=== PATIENT | female | born 1975 | race Caucasian/White ===

== ENCOUNTER 2022-01-13 14:46 | Emergency (ER) | payer OTHER, SELFPAY ==
[2022-01-13 16:08] VITALS: BP 132/73; PULSE 77; RESP 18; TEMP 36.1; O2SAT 98; BMI 30.9
[2022-01-13] MEDS: Lidocaine HCl 1 % 20 ML VIAL 10 ML INFILTRATI (18:16)
[2022-01-13] MEDS: Diphth,Pertus(ACell),Tet Adult 0.5 ML SYRINGE IM (18:46)
--- NOTE | 2022-01-13 18:56 | ED.WOUNDLAC ---
HPI - Wound/Laceration General Chief Complaint: Wound/Laceration Stated Complaint: R foot lac Time Seen by Provider: 01/13/22 17:43 Source: patient Mode of arrival: ambulatory Limitations: no limitations History of Present Illness HPI narrative: At 1 yet 46-year-old female who was playing with her own dog, and went to kick the ball walk her dog went to bite the ball and her dog bit the top of her right ankle. Her dog is up-to-date on all of its rabies shots and vaccinations. She is not up-to-date on her tetanus. Related Data Home Medications Medication Instructions Recorded Confirmed fluticasone propionate 50 1 spray INTRANASAL DAILY 01/25/21 mcg/actuation nasal spray,suspension ibuprofen PO .twice daily 01/25/21 Previous Rx's Medication Instructions Recorded carbamide peroxide 6.5 % ear drops 5 drp OTIC (EAR) LEFT Q12H 4 Days 01/25/21 (Debrox) #18 ml meclizine 25 mg tablet 25 mg PO BID PRN #30 tab 01/25/21 amoxicillin 875 mg-potassium 1 tab PO BID 10 Days #20 tab 01/13/22 clavulanate 125 mg tablet Allergies Allergy/AdvReac Type Severity Reaction Status Date / Time No Known Allergies Allergy Verified 01/25/21 08:15 Review of Systems Constitutional: Constitutional: Denies body ache(s), Denies chills, Denies fatigue, Denies fever(s), Denies headache(s), Denies malaise and Denies weakness Eyes: Eyes: Denies diplopia ENT: Denies vertigo, Denies dizziness, Denies headache(s) and Denies throat swelling Cardiovascular: Cardiovascular: Denies chest pain, Denies syncope, Denies leg edema, Denies lightheadedness, Denies Loss of Consciousness, Denies palpitations and Denies dyspnea Respiratory: Respiratory: Denies chest congestion, Denies cough and Denies dyspnea Gastrointestinal: Gastrointestinal: Denies abdominal pain, Denies hematochezia, Denies constipation, Denies diarrhea and Denies vomiting Musculoskeletal: Musculoskeletal: Reports no additional musculoskeletal complaints, Denies muscle weakness, Denies numbness and Denies tingling Integumentary/Breasts: Comments: Laceration to dorsum of right ankle Neurologic: Denies confusion, Denies vertigo, Denies dizziness, Denies syncope, Denies headache(s), Denies numbness, Denies tingling and Denies weakness Psychiatric: Psychiatric: Denies anxiety, Denies confusion and Denies depression Endocrine: Endocrine: Denies fatigue and Denies palpitations Allergic/Immunologic: Allergic/Immunologic: Denies throat swelling PMFSH Past Medical History Medical History (Updated 01/13/22 @ 18:05 by TAMI Prescott) No known health problems Social History Social History Advance Directives: No Advance Directives Information Provided: No Physical Exam Vital Signs: Vital Signs: Last Vital Signs Temp 97.0 F 01/13/22 16:08 Pulse 77 01/13/22 16:08 Resp 18 01/13/22 16:08 BP 132/73 01/13/22 16:08 Pulse Ox 98 01/13/22 16:08 BMI result Body Mass Index 30.9 Const: General: No confusion Nutritional Appearance: well nourished Orientation/consciousness: No confusion Limitations: no limitations Eyes: Conjunctivae: conjunctivae normal Pupils: Equal, round and reactive pupils present EOM: EOMs intact bilaterally Neck: Neck: Yes full ROM, Yes no lymphadenopathy and Yes supple Resp: Effort & Inspection: normal respiratory effort and able to speak in complete sentences Auscultation: clear to auscultation bilaterally, no crackles, no rales, no rhonchi and no wheezes Cardio: Rate: regular rate Rhythm: regular rhythm Heart sounds: S1 normal heart sound present and S2 normal heart sound present GI: Inspection: Yes normal to inspection Palpation (GI): Soft to palpation, nontender, no guarding and not rigid Percussion: Yes normal to percussion Auscultation: normal bowel sounds Skin: Trauma: laceration left dorsal ankle Neuro: General: No confusion Cranial nerves: Yes Equal, round and reactive pupils present Extrem: General: Yes normal to inspection and Yes full ROM Left lower extremity: full ROM, normal capillary refill and ankle Details: normal ROM and laceration; Negative for no tenderness, no swelling, edema, no ecchymosis and no crepitus; No no cyanosis and no edema Psych: Appearance: grossly normal Affect: normal affect Attitude: cooperative Thought process: Normal thought process present Course Course Course Narrative: 46-year-old female with laceration to ankle from dog bite. Placed 3 loose sutures, gave return precautions, gave tetanus, place patient on Augmentin. Procedures Laceration Laceration 1: Site: lower extremity Side (If applicable): left Size (cm): 4 Description: linear Depth: simple, single layer Local Anesthetic: lidocaine 1% Amount of anesthesia used (mL): 5 Pre-repair: wound explored, irrigated extensively and deep structures intact Skin layer closed with: nylon Size (cm): 4-0 Number of sutures: 3 Technique: simple, interrupted Discharge Plan Discharge Clinical Impression: Dog bite of ankle Patient Disposition: Home, Self-Care Instructions: Animal Bite (ED), Laceration (ED) Additional Instructions: Please take antibiotics as prescribed. Please alternate Tylenol and ibuprofen for pain as I have described below Please alternate Tylenol and ibuprofen for pain. Take 1 or the other every 4 hours. For example, at midnight take 1000 mg of Tylenol, then at 4:00 a.m. take 800 mg ibuprofen, at 8:00 a.m. take 1000 mg of Tylenol, at noon take 800 mg of ibuprofen, at 4:00 p.m. take 1000 mg of Tylenol, at 8:00 p.m. take 800 mg of ibuprofen. Do not exceed 3000 mg of Tylenol in 24 hours. This method is proven to be as effective as an opioid for pain control. You have THREE stitches. You must have these removed in 7 days, on January 20. Leave the dressing in place until tomorrow night. Please after that take the dressing off, washed with soap and water, pat dry, apply bacitracin nonstick dressing, do this every day for the next 5 days. If there is redness swelling or warmth or pus coming from the wound, please return to be seen. Prescriptions: New amoxicillin-pot clavulanate 875-125 mg tablet 1 tab PO BID 10 Days Qty: 20 0RF No Action fluticasone propionate 50 mcg/actuation spray,suspension 1 spray intranasal DAILY 0RF Rx Instructions: administer into each nostril ibuprofen PO .twice daily 0RF meclizine 25 mg tablet 25 mg PO BID PRN (Reason: dizziness) Qty: 30 0RF carbamide peroxide [Debrox] 6.5 % drops 5 drp otic (ear) left Q12H 4 Days Qty: 18 0RF Interventions: ED Discharge Assessment Last Done: 01/13/22 18:53 Discharge Date/Time: 01/13/22 18:55
== END 2022-01-13 18:55 | disposition home or self-care (01) ==
PROVIDERS: Emergency Provider Emergency Medicine; PCP Internal Medicine
DX: S91.012A Laceration without foreign body, left ankle, initial encounter (principal); S90.512A Abrasion, left ankle, initial encounter; W54.0XXA Bitten by dog, initial encounter; Y93.9 Activity, unspecified; Y92.9 Unspecified place or not applicable; Y99.9 Unspecified external cause status
CPT/HCPCS: 12002; 90471; 90715; 99284